=== PATIENT | female | born 2000 | race Caucasian/White ===

== ENCOUNTER 2019-06-01 17:37 | Emergency (ER) | payer SELFPAY ==
--- NOTE | 2019-06-01 20:32 | Event Note ---
ED Screening Note Date of service: 06/01/19 Time: 20:30 ED Screening Note: 19 y female presents with upper abd pain with nausea and vomittinactive vomit in triage non tender abd This initial assessment/diagnostic orders/clinical plan/treatment(s) is/are subject to change based on patients health status, clinical progression and re- assessment by fellow clinical providers in the ED. Further treatment and workup at subsequent clinical providers discretion. Patient/guardian urged not to elope from the ED as their condition may be serious if not clinically assessed and managed. Initial orders include: ua,upt cbc,cmp acc eval
[2019-06-01 21:05] LABS: Basophils % (Auto) 0.2 % (0.0-1.8); Hematocrit 41.9 % (30.3-42.9); Hemoglobin 13.7 gm/dl (10.1-14.3); Lymphocytes # (Auto) 1.7 K/mm3 (1.2-5.4); Lymphocytes % (Auto) 10.6 % (13.4-35.0); Mean Corpuscular HGB Conc 33 % (30-34); Mean Corpuscular Volume 80 fl (79-97); Monocytes # (Auto) 0.4 K/mm3 (0.0-0.8); Monocytes % (Auto) 2.4 % (0.0-7.3); Platelet Count 194 K/mm3 (140-440); Red Blood Count 5.26 M/mm3 (3.65-5.03); Red Cell Distribution Width 14.1 % (13.2-15.2)
[2019-06-01 21:27] LABS: Alanine Aminotransferase 28 units/L (7-56); Albumin 4.8 g/dL (3.9-5); BUN/Creatinine Ratio 24; Blood Urea Nitrogen 22 mg/dL (7-17); Calcium 9.5 mg/dL (8.4-10.2); Hemolysis Index 14
[2019-06-01] MEDS ORDERED: SODIUM CHLORIDE 0.9% 1000 ML 1,000 ML IV ONE (21:32)
[2019-06-01] MEDS ORDERED: ONDANSETRON 4 MG/2 ML INJ IV ONE (21:32)
[2019-06-01] MEDS ORDERED: MORPHINE 2 MG/1 ML INJ IV ONE (21:38)
[2019-06-01] MEDS ORDERED: FAMOTIDINE 20 MG/2 ML INJ IV ONE (21:38)
--- NOTE | 2019-06-01 23:11 | Cat Scan Report ---
CT abdomen pelvis w con INDICATION: abdominal pain, N/V. TECHNIQUE: All CT scans at this location are performed using CT dose reduction for ALARA by means of automated e xposure control. COMPARISON: None available. FINDINGS: Lung bases are clear of acute disease. Liver, gallbladder, spleen, pancreas, kidneys and adrenals are negative. Abdominal aorta is normal in size. No adenopathy. Pelvis Normal appendix. Bilateral ovarian cysts, measuring 3.3 cm on the right and 2.3 cm on the left. Small amount of free fluid in the cul-de-sac. No bowel abnormalities. Slight deformity of the symphysis pubis. No acute skeletal lesions. IMPRESSION: 1. Bilateral ovarian cysts, with small amount of free fluid in the cul-de-sac. Signer Name: Chilo Coppola MD Signed: 06/01/2019 11:07 PM Workstation Name: [id number]
[2019-06-02] MEDS ORDERED: KETOROLAC 30 MG/1 ML INJ IV ONE (00:27)
[2019-06-02] MEDS ORDERED: diphenhydrAMINE 50 MG/ML VIAL IV ONE (00:27)
[2019-06-02] MEDS: METOCLOPRAMIDE 10 MG/2 ML INJ IV ONE ×3 (01:20→01:27)
[2019-06-02 03:23] LABS: Bacteria,Urine 1+ /HPF (Negative); Bilirubin,Urine NEG (Negative); Blood,Urine NEG (Negative); Color,Urine Yellow (Yellow); Mucus,Urine 1+ /HPF; Protein,Urine <15 mg/dL mg/dL (Negative); Urobilinogen,Urine < 2.0 mg/dL (<2.0)
[2019-06-02] MEDS ORDERED: cefTRIAXone/NS 1 GM/50 ML 1 GM/50 ML BAG IV ONE (03:44)
--- NOTE | 2019-06-02 03:50 | Emergency Department Report ---
ED N/V/D HPI - General Chief complaint: Nausea/Vomiting/Diarrhea Stated complaint: VOMITING/NAUSEA Source: patient Mode of arrival: Ambulatory Limitations: No Limitations - History of Present Illness Initial comments: Patient is a nulliparous 19-year-old -[place] female with no past medical history who presents to the ED with acute onset persistent diffuse abdominal pain, intractable nausea and vomiting for the last 4 days. Patient also complains of sore throat. Patient states that she is not been able to keep anything down because of persistent nausea and vomiting. Patient states that the pain in the abdomen is diffuse but radiates diffusely in the lower abdomen. Patient denies hematemesis, fever, chills, cough, chest pain, shortness of breath, dizziness, syncope, dysuria, urinary frequency and urgency, vaginal bleeding, low back pain or vaginal discharge. MD complaint: nausea, vomiting, abdominal pain -: Sudden, days(s) (4) Description of Vomiting: bilious Associated Abdominal Pain: Yes (diffuse, worse in the lower abdomen diffusely) Location: diffuse, periumbillcal Radiation: none Severity: severe Pain Scale: 9 Quality: cramping, aching, sharp Consistency: constant Improves with: none Worsens with: vomiting Context: other (Spontaneous) Associated Symptoms: denies other symptoms, myalgias, loss of appetite, malaise, nausea/vomiting. denies: chest pain, cough, diaphoresis, fever/chills, rash, dysuria, shortness of breath, syncope, weakness, other - Related Data Previous Rx's Medication Instructions Recorded Last Taken Type Dicyclomine [Bentyl] 20 mg PO Q6H PRN #24 tablet 06/02/19 Unknown Rx Famotidine [Pepcid] 20 mg PO Q12H #20 tablet 06/02/19 Unknown Rx Ketorolac [Toradol] 10 mg PO Q8H PRN #20 tablet 06/02/19 Unknown Rx Ondansetron [Zofran Odt] 4 mg PO Q6HR PRN #20 tab.rapdis 06/02/19 Unknown Rx Promethazine [Phenergan] 25 mg PO Q6HR PRN #24 tab 06/02/19 Unknown Rx cephALEXin [Keflex] 500 mg PO Q8HR #30 cap 06/02/19 Unknown Rx Allergies Allergy/AdvReac Type Severity Reaction Status Date / Time No Known Allergies Allergy Unverified 06/01/19 20:33 ED Review of Systems ROS: Stated complaint: VOMITING/NAUSEA Other details as noted in HPI Constitutional: malaise, weakness. denies: chills, fever Eyes: denies: eye pain, eye discharge, vision change ENT: throat pain. denies: ear pain Respiratory: denies: cough, shortness of breath, wheezing Cardiovascular: denies: chest pain, palpitations Endocrine: no symptoms reported Gastrointestinal: abdominal pain, nausea, vomiting. denies: diarrhea Genitourinary: denies: urgency, dysuria, discharge Musculoskeletal: denies: back pain, joint swelling, arthralgia Skin: denies: rash, lesions Neurological: denies: headache, weakness, paresthesias Psychiatric: denies: anxiety, depression Hematological/Lymphatic: denies: easy bleeding, easy bruising ED Past Medical Hx - Past Medical History Previous Medical History?: Yes Additional medical history: Urethra prolapse - Surgical History Past Surgical History?: Yes - Social History Smoking Status: Never Smoker Substance Use Type: None - Medications Home Medications: Home Medications Medication Instructions Recorded Confirmed Last Taken Type Dicyclomine [Bentyl] 20 mg PO Q6H PRN #24 tablet 06/02/19 Unknown Rx Famotidine [Pepcid] 20 mg PO Q12H #20 tablet 06/02/19 Unknown Rx Ketorolac [Toradol] 10 mg PO Q8H PRN #20 tablet 06/02/19 Unknown Rx Ondansetron [Zofran Odt] 4 mg PO Q6HR PRN #20 tab.rapdis 06/02/19 Unknown Rx Promethazine [Phenergan] 25 mg PO Q6HR PRN #24 tab 06/02/19 Unknown Rx cephALEXin [Keflex] 500 mg PO Q8HR #30 cap 06/02/19 Unknown Rx ED Physical Exam - General Limitations: No Limitations General appearance: alert, in no apparent distress - Head Head exam: Present: atraumatic, normocephalic, normal inspection - Eye Eye exam: Present: normal appearance, PERRL, EOMI Pupils: Present: normal accommodation - ENT ENT exam: Present: normal exam, normal orophraynx, mucous membranes moist, TM's normal bilaterally, normal external ear exam - Neck Neck exam: Present: normal inspection, full ROM - Respiratory Respiratory exam: Present: normal lung sounds bilaterally. Absent: respiratory distress, wheezes, rales, rhonchi, chest wall tenderness, accessory muscle use, decreased breath sounds - Cardiovascular Cardiovascular Exam: Present: normal rhythm, bradycardia, normal heart sounds. Absent: systolic murmur, diastolic murmur, rubs, gallop - GI/Abdominal GI/Abdominal exam: Present: soft, tenderness (Palpable diffuse abdominal tenderness with guarding,), guarding, normal bowel sounds. Absent: rebound, hyperactive bowel sounds, hypoactive bowel sounds - Bi-manual exam: Present: other (pelvic exam deferred, patient declined) - Extremities Exam Extremities exam: Present: normal inspection, full ROM, normal capillary refill - Back Exam Back exam: Present: normal inspection, full ROM. Absent: tenderness, CVA tenderness (R), CVA tenderness (L), muscle spasm, vertebral tenderness - Neurological Exam Neurological exam: Present: alert, oriented X3, CN II-XII intact, normal gait, reflexes normal - Psychiatric Psychiatric exam: Present: normal affect, normal mood - Skin Skin exam: Present: warm, dry, intact, normal color. Absent: rash ED Course Vital Signs 06/01/19 20:35 Temperature 97.8 F Pulse Rate 56 L Respiratory 18 Rate Blood Pressure 139/85 [Left] O2 Sat by Pulse 100 Oximetry ED Medical Decision Making - Lab Data Result diagrams: 06/01/19 20:56 06/01/19 20:56 - Radiology Data Findings [facility] [address] [place] [address] Cat Scan Report Signed Patient: DESTINEE HAYES MR#: [id number] : 2000 Acct:[id number] Age/Sex: 19 / F ADM Date: 06/01/19 Loc: ED Attending Dr: Ordering Physician: ZOHREH VILLA Date of Service: 06/01/19 Procedure(s): CT abdomen pelvis w con Accession Number(s): [id number] cc: ZOHREH VILLA CT abdomen pelvis w con INDICATION: abdominal pain, N/V. TECHNIQUE: All CT scans at this location are performed using CT dose reduction for ALARA by means of automated exposure control. COMPARISON: None available. FINDINGS: Lung bases are clear of acute disease. Liver, gallbladder, spleen, pancreas, kidneys and adrenals are negative. Abdominal aorta is normal in size. No adenopathy. Pelvis Normal appendix. Bilateral ovarian cysts, measuring 3.3 cm on the right and 2.3 cm on the left. Small amount of free fluid in the cul-de-sac. No bowel abnormalities. Slight deformity of the symphysis pubis. No acute skeletal lesions. IMPRESSION: 1. Bilateral ovarian cysts, with small amount of free fluid in the cul-de-sac. Signer Name: Chilo Coppola MD Signed: 06/01/2019 11:07 PM Workstation Name: [id number] Transcribed By: TM Dictated By: Chilo Coppola MD Electronically Authenticated By: Chilo Coppola MD Signed Date/Time: 06/01/192306 DD/ 03 TD/TT: - Medical Decision Making This is a 19-year-old nulliparous female who presented to the ED with persistent intermittent nausea and vomiting with diffuse abdominal pain for 4 days. In the ED, patient is alert and oriented 3 and is not in distress but appears to be in significant discomfort, having hyperemesis during the physical exam. Lab test results were reviewed and shows acute leukocytosis of 15,600, hypokalemia of 3.4 mmol per liter and BUN of 22 and significant urinary tract infection in urinalysis. Patient was treated for pain, also treated for nausea and vomiting and given normal saline 1 L IV bolus. Abdomen pelvic CT scan with contrast shows bilateral ovarian cysts, measuring 3.3 cm on the right and 2.3 cm on the left with small amount of free fluid in the cul-de-sac. No bowel abnormalities. Patient was also treated in the ED with Rocephin 1 g IV for acute urinary tract infection in the ED. On reevaluation, patient was able to keep oral fluids in the ED and the pain is well-controlled, patient sleeping comfortably in the bed in no distress. Patient was discharged home on antiemetics, also pain m edications and oral antibiotics and antacids. Patient is advised to follow-up with her primary care physician in 5-7 days for reevaluation and was also advised to return to the ED immediately if symptoms get worse. - Differential Diagnosis appendicitis; UTI; Ovarian cysts; Ovarian torsion; Gastroenteritis Critical care attestation.: If time is entered above; I have spent that time in minutes in the direct care of this critically ill patient, excluding procedure time. ED Disposition Clinical Impression: Nausea and vomiting in adult, Acute urinary tract infection, Dehydration Abdominal pain Qualifiers: Abdominal location: generalized Qualified Code(s): R10.84 - Generalized abdominal pain Ovarian cyst Qualifiers: Laterality: bilateral Qualified Code(s): N83.201 - Unspecified ovarian cyst, right side; N83.202 - Unspecified ovarian cyst, left side Disposition: TO HOME OR SELFCARE Is pt being admited?: No Does the pt Need Aspirin: No Condition: Stable Instructions: Acute Abdominal Pain (ED), Urinary Tract Infection in Women (ED), Ovarian Cyst (ED), Dehydration (ED), Acute Nausea and Vomiting (ED) Additional Instructions: Maintain a clear liquid diet for 12-24 hours, take medications with food, drink plenty of fluids and follow-up with your primary care physician in 7-10 days for reevaluation. Return to the ED immediately if symptoms get worse. Prescriptions: Dicyclomine [Bentyl] 20 mg PO Q6H PRN #24 tablet PRN Reason: Pain , Severe (7-10) cephALEXin [Keflex] 500 mg PO Q8HR #30 cap Famotidine [Pepcid] 20 mg PO Q12H #20 tablet Promethazine [Phenergan] 25 mg PO Q6HR PRN #24 tab PRN Reason: Nausea Ketorolac [Toradol] 10 mg PO Q8H PRN #20 tablet PRN Reason: Pain Ondansetron [Zofran Odt] 4 mg PO Q6HR PRN #20 tab.rapdis PRN Reason: Nausea Referrals: MARY JANE ZAMORA MD [Staff Physician] - 7-10 days Forms: Work/School Release Form(ED) Time of Disposition: 03:58 Print Language: SLOVAK
[2019-06-02] MEDS ORDERED: PROMETHAZINE 25 MG TAB PO ONE (05:08)
[2019-06-02] MEDS ORDERED: PROMETHAZINE 25 MG TAB ONE (05:11)
[2019-06-02 05:21] VITALS: BP 116/70
== END 2019-06-02 05:21 | disposition home or self-care (01) ==
LOC: ED 17:37
DX: E86.0 Dehydration (principal); N83.201 Unspecified ovarian cyst, right side; N83.202 Unspecified ovarian cyst, left side; N39.0 Urinary tract infection, site not specified; Z79.899 Other long term (current) drug therapy
CPT/HCPCS: 36415; 74177; 80053; 81001; 83690; 84703; 85025; 87086; 96361; 96365; 96375; 99284; J0696; J1200; J1885; J2270; J2405; J2765; J7030; Q0169; Q9967